=== PATIENT | female | born 1965 | race Caucasian/White ===

== ENCOUNTER → 2017-02-03 | Outpatient (CLI) | payer BC | LOC: MMGSC 13:37 | PROVIDERS: ATTEND Family Medicine | DX: E34.9 Endocrine disorder, unspecified (principal) | CPT/HCPCS: 36415; 83001; 83002 ==

== ENCOUNTER → 2017-06-15 | Outpatient (CLI) | payer BC ==
[2017-06-15 14:11] LABS: HCT 42.1 % (34.0-46.0); HGB 13.8 gm/dL (11.4-16.0); MCH 29.9 pg (25.0-35.0); MCHC 32.7 g/dL (31.0-37.0); MCV 91.5 fL (80.0-100.0); Mean Platelet Volume 6.6; Platelet Count 428 k/uL (150-450); RDW 12.3 % (11.5-15.5); WBC 9.2 k/uL (3.8-10.6)
[2017-06-15 14:45] LABS: ALT 28 U/L (9-52); AST 21 U/L (14-36); Albumin 4.2 g/dL (3.5-5.0); Alkaline Phosphatase 65 U/L (38-126); Anion Gap 11 mmol/L; Blood Urea Nitrogen 14 mg/dL (7-17); Calcium 9.8 mg/dL (8.4-10.2); Carbon Dioxide 26 mmol/L (22-30); Chloride 108 mmol/L (98-107); Cholesterol 167 mg/dL (<200); Glucose 98 mg/dL (74-99); HDL Cholesterol 50 mg/dL (40-60); LDL Cholesterol,Calculated 86 mg/dL (0-99); Potassium 4.3 mmol/L (3.5-5.1); Sodium 145 mmol/L (137-145); Total Bilirubin 0.6 mg/dL (0.2-1.3); Triglycerides 156 mg/dL (<150)
[2017-06-15 19:24] LABS: Iron Saturation 25.41 (12.00-45.00)
[2017-06-15 19:33] LABS: Vitamin D 25 Hydroxy 20.1 ng/mL (30.0-100.0)
[2017-06-15 21:27] LABS: Hemoglobin A1C 5.1 % (4.0-6.0)
== END | disposition home or self-care (01) ==
LOC: LABWHC1 13:44
PROVIDERS: ATTEND Surgery
DX: E66.01 Morbid (severe) obesity due to excess calories (principal); E44.0 Moderate protein-calorie malnutrition; E55.9 Vitamin D deficiency, unspecified
CPT/HCPCS: 36415; 80053; 80061; 82306; 82607; 83036; 83540; 83550; 84443; 85027; 93005

== ENCOUNTER → 2017-06-15 | Outpatient (CLI) | payer BC ==
[2017-06-15 13:48] VITALS: BP 150/85; PULSE 91; TEMP 98.5
--- NOTE | 2017-06-15 15:06 | P.HPBAR ---
Bariatric H&P - History & Physicial H&P Date: 06/15/17 History & Physicial: Visit/CC: initial visit Patient initial contact: Initial weight: Initial weight in pounds: Height: 5 ft 2.5 in Initial BMI: Last weight: Current weight: 97.114 kg Current weight in pounds: Current BMI: [place] body weight (based on NIH guidelines): 51.029 kg Excess body weight loss: The patient is a 51 year-old F who presents for Bariatric Assessment. Patient presents for new patient consultation. She is requesting sleeve gastrectomy. Her BMI is 39. She's had lifetime problems obesity. Patient states she has complaints of any foot and hip pain. She is also had some GERD symptoms. Past Medical History Past Medical History: GERD/Reflux, Hypertension History of Any Multi-Drug Resistant Organisms: None Reported Past Surgical History: Cholecystectomy, Hysterectomy, Tonsillectomy Additional Past Surgical History / Comment(s): bilateral wrist surgeries Past Anesthesia/Blood Transfusion Reactions: No Reported Reaction Past Psychological History: Anxiety Smoking Status: Never smoker Past Alcohol Use History: None Reported Past Drug Use History: None Reported Surgical - Exam Vital Signs Temp Pulse BP 98.5 F 91 150/85 06/15/17 13:32 06/15/17 13:32 06/15/17 13:32 - General well developed, no distress - Eyes PERRL - ENT normal pinna - Neck no masses - Respiratory normal expansion - Cardiovascular Rhythm: regular - Abdomen Abdomen: soft, non tender Bariatric Assessment & Plan Plan: Morbid obesity with comorbidities. Patient has history of significant knee osteoarthritis. She's had previous injections in her knee. She takes Motrin when necessary. The patient will undergo EGD. We will attempt authorize her for sleeve gastrectomy. Bariatric Checklist Checklist: Plan: Checklist: EGD: 1. Hiatal hernia: 2. H. Pylori: HgbA1c: Vitamin D: Smoking: Never smoker Primary care physician referral: dr valle Psychiatry clearance: Cardiology clearance: Sleep study: Diet journal: VTE risk score: VTE risk level: Rehab needs at discharge:
== END | disposition home or self-care (01) ==
LOC: BARWHC3 12:46
PROVIDERS: ATTEND Surgery
DX: E66.01 Morbid (severe) obesity due to excess calories (principal); M17.0 Bilateral primary osteoarthritis of knee; F41.9 Anxiety disorder, unspecified; K21.9 Gastro-esophageal reflux disease without esophagitis; I10 Essential (primary) hypertension; Z90.49 Acquired absence of other specified parts of digestive tract; Z90.710 Acquired absence of both cervix and uterus; Z98.890 Other specified postprocedural states; Z79.1 Long term (current) use of non-steroidal anti-inflammatories (NSAID); Z68.39 Body mass index [BMI] 39.0-39.9, adult
CPT/HCPCS: 99201

== ENCOUNTER 2017-06-22 08:04 | Day surgery (SDC) | payer BC ==
[2017-06-18 09:26] VITALS: BMI 37.9
[~2017-06-22 08:04] MED LIST: LACTATED RINGERS 1,000 ML IV SCH; LIDOCAINE 1% 20 ML VIAL (10MG/ML) FOR IV START INTRADERMA PRN
[2017-06-22 08:25] VITALS: TEMP 98.4
[2017-06-22] MEDS ORDERED: PROPOFOL 10 MG/ML 20 ML VIAL IV ONE (10:10)
--- NOTE | 2017-06-22 10:11 | P.GSHP ---
History of Present Illness H&P Date: 06/22/17 Chief Complaint: Morbid obesity, GERD This is a 52-year-old female referred from Dr. Lucia Romero. Patient resents today for EGD. She is currently undergoing workup for sleeve yesterday. She's had some mild GERD symptoms. Past Medical History Past Medical History: GERD/Reflux, Hypertension History of Any Multi-Drug Resistant Organisms: None Reported Past Surgical History: Cholecystectomy, Hysterectomy, Tonsillectomy Additional Past Surgical History / Comment(s): bilateral wrist surgeries (FIRST JOINT THUMBS) Past Anesthesia/Blood Transfusion Reactions: No Reported Reaction Smoking Status: Never smoker - Past Family History Father Family Medical History: Prostate Disorder Medications and Allergies Home Medications Medication Instructions Recorded Confirmed Type ALPRAZolam [Xanax] 0.5 mg PO DIRECTED PRN 06/15/17 06/18/17 History Butalb/Acetaminophen/Caffeine 1 cap PO DAILY PRN 06/15/17 06/22/17 History [Fioricet 50-300-40 mg Capsule] Sertraline [Zoloft] 75 tab PO DAILY 06/15/17 06/18/17 History Allergies Allergy/AdvReac Type Severity Reaction Status Date / Time No Known Allergies Allergy Verified 06/22/17 08:20 Surgical - Exam Vital Signs Temp Pulse Resp BP Pulse Ox 98.4 F 84 16 133/84 98 06/22/17 08:24 06/22/17 08:24 06/22/17 08:24 06/22/17 08:24 06/22/17 08:24 - General well developed, no distress - Eyes PERRL - ENT normal pinna - Neck no masses - Respiratory normal expansion - Cardiovascular Rhythm: regular - Abdomen Abdomen: soft, non tender Assessment and Plan Assessment: GERD. Morbid obesity with BMI 38 We'll perform EGD.
--- NOTE | 2017-06-22 10:23 | P.OP ---
Date of Procedure: 06/22/17 Preoperative Diagnosis: Morbid obesity GERD Postoperative Diagnosis: Morbid obesity Mild antral gastritis Mild esophagitis No evidence of hiatal hernia Procedure(s) Performed: EGD Anesthesia: MAC Surgeon: Chung Maguire Pathology: other (Antrum, esophagus) Condition: stable Disposition: PACU Description of Procedure: Patient's placed on the endoscopy table in the lateral position. She received IV sedation. The gastroscope some placed oropharynx and passed in the esophagus and stomach. Scope was then placed through the pylorus. The first and second portion of the duodenum appeared normal. Scope was then brought back the antrum and this was mildly inflamed. A biopsies performed. Scope was retroflexed and remainder of the stomach appeared normal. The hiatus was examined. There is known to any hiatal hernia. The scope was then brought back the distal esophagus was mildly inflamed. A biopsies performed. The proximal esophagus appeared normal. Scope was withdrawn for patient.
[2017-06-22 10:33] VITALS: RESP 18
[2017-06-22 10:57] VITALS: BP 137/78; PULSE 62
== END 2017-06-22 11:08 | disposition home or self-care (01) ==
LOC: ORWHC2ENDO 08:04
PROVIDERS: ATTEND Surgery
DX: K21.0 Gastro-esophageal reflux disease with esophagitis (principal); K29.50 Unspecified chronic gastritis without bleeding; I10 Essential (primary) hypertension; F41.9 Anxiety disorder, unspecified; F32.9 Major depressive disorder, single episode, unspecified; E66.01 Morbid (severe) obesity due to excess calories; Z68.38 Body mass index [BMI] 38.0-38.9, adult; Z79.899 Other long term (current) drug therapy; Z90.49 Acquired absence of other specified parts of digestive tract
CPT/HCPCS: 43239; J2704; 88305

== ENCOUNTER → 2017-07-13 | Outpatient (CLI) | payer BC ==
[2017-07-13 13:54] VITALS: BP 137/75; PULSE 76; RESP 15; TEMP 98.1; BMI 37.7
--- NOTE | 2017-07-14 11:35 | P.HPBAR ---
Bariatric H&P - History & Physicial H&P Date: 07/13/17 History & Physicial: Visit/CC: sleeve consultation EGD results (Jun) Patient initial contact: Initial weight: 97.114 kg Initial weight in pounds: 214.10 Height: 5 ft 2.5 in Initial BMI: 38.5 Last weight: Current weight: 95.073 kg Current weight in pounds: 209.60 Current BMI: 37.7 [place] body weight (based on NIH guidelines): 51.029 kg Excess body weight loss: 4.4% The patient is a 52 year-old F who presents for Bariatric Assessment. The patient returns. She is preoperative for sleeve gastrectomy. She has scheduled her psych evaluation. The patient morbid obese with a BMI of 38. Patient's undergone previous EGD. Past Medical History Past Medical History: GERD/Reflux, Hypertension History of Any Multi-Drug Resistant Organisms: None Reported Past Surgical History: Cholecystectomy, Hysterectomy, Tonsillectomy Additional Past Surgical History / Comment(s): bilateral wrist surgeries (FIRST JOINT THUMBS) Past Anesthesia/Blood Transfusion Reactions: No Reported Reaction Past Psychological History: Anxiety Smoking Status: Never smoker Past Alcohol Use History: Rare Past Drug Use History: None Reported - Past Family History Father Family Medical History: Prostate Disorder Surgical - Exam Vital Signs Temp Pulse Resp BP 98.1 F 76 15 137/75 07/13/17 13:47 07/13/17 13:47 07/13/17 13:47 07/13/17 13:47 - General well developed, no distress - Eyes PERRL - ENT normal pinna - Neck no masses - Respiratory normal expansion - Cardiovascular Rhythm: regular - Abdomen Abdomen: soft, non tender Bariatric Assessment & Plan Plan: Morbid obesity with BMI of 38. Patient will be authorized for sleeve gastrectomy. She will follow-up in the clinic in 8 weeks. Bariatric Checklist Checklist: Plan: Checklist: EGD: 1. Hiatal hernia: 2. H. Pylori: HgbA1c: Vitamin D: Smoking: Never smoker Primary care physician referral: dr valle Psychiatry clearance: Cardiology clearance: Sleep study: Diet journal: VTE risk score: VTE risk level: Rehab needs at discharge:
== END | disposition home or self-care (01) ==
LOC: BARWHC3 13:33
PROVIDERS: ATTEND Surgery
DX: Z48.815 Encounter for surgical aftercare following surgery on the digestive system (principal); E66.01 Morbid (severe) obesity due to excess calories; B96.81 Helicobacter pylori [H. pylori] as the cause of diseases classified elsewhere; Z68.38 Body mass index [BMI] 38.0-38.9, adult; Z90.710 Acquired absence of both cervix and uterus; Z90.49 Acquired absence of other specified parts of digestive tract
CPT/HCPCS: 83013; 99211

== ENCOUNTER → 2017-09-01 | Outpatient (CLI) | payer BC ==
--- NOTE | 2017-09-01 15:17 | CONS ---
CONSULTATION This is a consultation note for sleep apnea. A 52-year-old obese female patient coming in complaining of loud snoring, and chronic tiredness and sleepiness. She is obese. She has gained significant amount of weight over the years. Her current BMI 39.5, and she is interested in bariatric surgery. For that reason, she was referred for further evaluation. She goes to bed somewhere between 10-11:00 p.m. and wakes up 6 to 7:00 am in the morning. However effectively she takes only 4 hours of solid sleep. She snores loud. She has excessive daytime sleepiness. No current Wood[place] Score is at 11. Does not fall asleep while driving. No restlessness in lower extremities. Occasional grinding of the teeth. She has chronic anxiety maintained on a combination of Zoloft and Xanax. PAST MEDICAL HISTORY: Obesity and chronic anxiety. PAST SURGICAL HISTORY: Includes foot surgery involving the 5th metatarsal joint, abdominal hysterectomy, inguinal hernia repair, cholecystectomy and rotator cuff release. ALLERGIES: Not known. MEDICATION LIST: Includes Zoloft 75 mg p.o. daily, Fioricet p.r.n., Xanax p.r.n., multivitamin, calcium and vitamin D. SOCIAL HISTORY: A nonsmoker. Drinks alcohol socially. No history of substance abuse. FAMILY HISTORY: Father has obstructive sleep apnea. REVIEW OF SYSTEMS: 12-point review of system was done. The patient has no sleepwalking or sleep talking. She is a nose breather. No dry mouth in the morning. She has anxiety but no panic attacks. No palpitation. No heartburn. No sexual dysfunction. No history of depression. She has no problems with memory or concentration. She worries about her sleep and she takes naps during the day as at times as the patient becomes quite somnolent and sleepy. No sleep paralysis. No hallucinations or cataplexy. Her current vitals BP is 140/77, pulse 88, respirations 16, temp 98 saturation 98% on room air. Neck size 14 inches, BMI 39.5, weight is 221. Height is 5 feet 2 inches. GENERAL APPEARANCE: Calm, comfortable. Head is atraumatic, normocephalic. NECK: Short, supple. Crowded posterior pharynx. There is no goiter or neck masses. LUNGS: Diminished. HEART: Sounds. Regular rhythm. Normal S1, S2. No S3, S4. No murmurs. ABDOMEN: Soft, nontender. No organomegaly. EXTREMITIES: No edema. No cyanosis or clubbing. NEUROLOGIC: The patient is AO x3. No focal neurological deficits. PSYCHIATRIC: Negative for depression. She has positive anxiety. IMPRESSION: 1. Obstructive sleep apnea clinically suspected, currently under investigation. 2. Chronic hypersomnia, Wood[place] score of 11. 3. Obesity with a BMI of 39.5. 4. Chronic anxiety maintained on a combination of Zoloft and Xanax. PLAN: This patient is feeling somnolent and sleepy. She is currently retired. 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 Currently she is off work and she has not worked for the past 8 months at least. She is feeling quite tired and sleepy during the day and she at times takes naps. She is obese and she is gaining weight. She is interested in bariatric surgery. She was referred to me for evaluation of obstructive sleep apnea. We will proceed with a screening polysomnogram to assess the presence of and severity of obstructive sleep apnea. Based on that we will make further recommendations and treatment options if needed. MMODL / IJN: [id number] /
== END ==
LOC: SLEEP 13:59
PROVIDERS: ATTEND Internal Medicine Critical Care Medicine
DX: G47.10 Hypersomnia, unspecified (principal); E66.9 Obesity, unspecified; F41.9 Anxiety disorder, unspecified; Z68.39 Body mass index [BMI] 39.0-39.9, adult; Z79.899 Other long term (current) drug therapy
CPT/HCPCS: 99211

== ENCOUNTER → 2018-09-20 | Outpatient (CLI) | payer BC ==
[2018-09-20 15:47] LABS: Basophils # (A) 0.1 k/uL (0-0.2); Basophils % (A) 1 %; Eosinophils # (A) 0.2 k/uL (0-0.7); Eosinophils % (A) 2 %; HCT 42.7 % (34.0-46.0); HGB 13.9 gm/dL (11.4-16.0); Lymphocytes # (A) 2.7 k/uL (1.0-4.8); Lymphocytes % (A) 29 %; MCH 29.9 pg (25.0-35.0); MCHC 32.6 g/dL (31.0-37.0); MCV 91.7 fL (80.0-100.0); Mean Platelet Volume 7.1; Monocytes # (A) 0.4 k/uL (0-1.0); Monocytes % (A) 5 %; Neutrophils # (A) 5.6 k/uL (1.3-7.7); Neutrophils % (A) 61 %; Platelet Count 366 k/uL (150-450); RBC 4.65 m/uL (3.80-5.40); RDW 13.5 % (11.5-15.5); WBC 9.1 k/uL (3.8-10.6)
[2018-09-20 16:06] LABS: ALT 38 U/L (9-52); AST 30 U/L (14-36); Albumin 4.5 g/dL (3.5-5.0); Alkaline Phosphatase 70 U/L (38-126); Anion Gap 8 mmol/L; Blood Urea Nitrogen 17 mg/dL (7-17); Calcium 9.8 mg/dL (8.4-10.2); Carbon Dioxide 26 mmol/L (22-30); Chloride 108 mmol/L (98-107); Glucose 92 mg/dL (74-99); Potassium 4.9 mmol/L (3.5-5.1); Sodium 142 mmol/L (137-145); Total Protein 7.1 g/dL (6.3-8.2)
== END | disposition home or self-care (01) ==
LOC: LABPAT 15:03
PROVIDERS: ATTEND Surgery
DX: Z01.818 Encounter for other preprocedural examination (principal); Z01.812 Encounter for preprocedural laboratory examination
CPT/HCPCS: 36415; 80053; 85025; 93005

== ENCOUNTER → 2018-09-20 | Outpatient (CLI) | payer BC ==
[2018-09-20 15:00] VITALS: BP 147/72; PULSE 72; RESP 16; TEMP 99; BMI 38.3
--- NOTE | 2018-09-20 16:41 | P.HPBAR ---
Bariatric H&P - History & Physicial H&P Date: 09/20/18 History & Physicial: Visit/CC: Pre-surg Patient initial contact: Initial weight: 97.114 kg Initial weight in pounds: 214.10 Height: 5 ft 2.5 in Initial BMI: 38.5 Last weight: Current weight: 96.615 kg Current weight in pounds: 213.00 Current BMI: 38.3 [place] body weight (based on NIH guidelines): 51.029 kg Excess body weight loss: 1.0% The patient is a 53 year-old F who presents for Bariatric Assessment. Patient presents for presurgical consultation. She is currently being scheduled for then a month for sleeve gastrectomy. Patient is morbidly obese with BMI 38. Past Medical History Past Medical History: GERD/Reflux, Hypertension History of Any Multi-Drug Resistant Organisms: None Reported Past Surgical History: Cholecystectomy, Hysterectomy, Tonsillectomy Additional Past Surgical History / Comment(s): bilateral wrist surgeries (FIRST JOINT THUMBS) Past Anesthesia/Blood Transfusion Reactions: No Reported Reaction Past Psychological History: Anxiety Smoking Status: Never smoker Past Alcohol Use History: Rare Past Drug Use History: None Reported - Past Family History Father Family Medical History: Prostate Disorder Surgical - Exam Vital Signs Temp Pulse Resp BP 99 F 72 16 147/72 09/20/18 14:57 09/20/18 14:57 09/20/18 14:57 09/20/18 14:57 - General well developed, well nourished, no distress - Abdomen Abdomen: soft, non tender Bariatric Assessment & Plan Plan: RBC. Patient will be undergoing sleeve gastrectomy at the end of the month. Patient is a good understanding of the procedure. Generous of the risks and benefits of surgery including conversion O procedure and injury to the stomach liver or spleen. She understands risk of possible gastric staple line disruption. Bariatric Checklist Checklist: Plan: Checklist: EGD: 1. Hiatal hernia: 2. H. Pylori: HgbA1c: Vitamin D: Smoking: Never smoker Primary care physician referral: dr valle Psychiatry clearance: Cardiology clearance: Sleep study: Diet journal: VTE risk score: VTE risk level: Rehab needs at discharge:
== END | disposition home or self-care (01) ==
LOC: BARWHC3 14:30
PROVIDERS: ATTEND Surgery
DX: Z01.818 Encounter for other preprocedural examination (principal); E66.01 Morbid (severe) obesity due to excess calories; Z68.38 Body mass index [BMI] 38.0-38.9, adult; Z90.49 Acquired absence of other specified parts of digestive tract
CPT/HCPCS: 99211

== ENCOUNTER → 2018-09-28 | Outpatient (CLI) | payer BC | END | disposition home or self-care (01) | LOC: LABWHC1 09:24 | PROVIDERS: ATTEND Anesthesiology | DX: Z01.812 Encounter for preprocedural laboratory examination (principal); E66.01 Morbid (severe) obesity due to excess calories | CPT/HCPCS: 86850; 86900; 86901 ==

== ENCOUNTER 2018-10-05 07:45 | Inpatient (IN) | payer BC ==
[~2018-10-05 07:45] MED LIST changes: +DEXAMETHASONE SOD PHOSPHATE 10 MG/ML 1 ML VIAL IV ONE; -LACTATED RINGERS 1,000 ML IV SCH; +MIDAZOLAM 2 MG/2 ML VIAL IV PRN; +ONDANSETRON 4 MG/2 ML VIAL IVP ONE; +SCOPOLAMINE 1.5MG/72HR PATCH TRANSDERM ONE; +ceFAZolin IN SWFI 2 GM/20 ML SYRINGE IVP ONE
--- NOTE | 2018-10-05 09:54 | P.GSHP ---
History of Present Illness H&P Date: 10/05/18 Chief Complaint: Morbid obesity This is a 53-year-old female who presents today for laparoscopic sleeve gastrectomy. Patient's had lifetime problems obesity. Her BMI is 37. Patient understands the risks of surgery including conversion to the open procedure and injury to the stomach liver spleen. She is also aware of the risk of gastric staple line disruption, bleeding or scarring. Past Medical History Past Medical History: GERD/Reflux, Hypertension History of Any Multi-Drug Resistant Organisms: None Reported Past Surgical History: Cholecystectomy, Hysterectomy, Tonsillectomy Additional Past Surgical History / Comment(s): bilateral wrist surgeries (FIRST JOINT THUMBS), COLONOSCOPY/EGD, RT ROTATOR CUFF SX, HEMORRHOID SX, Past Anesthesia/Blood Transfusion Reactions: No Reported Reaction Smoking Status: Never smoker - Past Family History Father Family Medical History: Cancer Mother Family Medical History: Cancer Medications and Allergies Home Medications Medication Instructions Recorded Confirmed Type ALPRAZolam [Xanax] 0.5 mg PO DIRECTED PRN 06/15/17 09/21/18 History Butalb/Acetaminophen/Caffeine 1 cap PO DAILY PRN 06/15/17 09/21/18 History [Fioricet 50-300-40 mg Capsule] Cholecalciferol (Vitamin D3) 10,000 unit PO DAILY 07/13/17 09/21/18 History [Vitamin D3] Cyclobenzaprine [Flexeril] 10 mg PO DIRECTED 08/23/18 09/21/18 History Metoprolol Monique/Hydrochlorothiaz 1 tab PO DAILY 08/23/18 09/21/18 History [Metoprolol ER-Hctz 25-12.5 mg] Phentermine HCl 37.5 mg pe PO DAILY 08/23/18 09/21/18 History Sertraline [Zoloft] 50 mg PO DAILY 09/21/18 09/21/18 History Allergies Allergy/AdvReac Type Severity Reaction Status Date / Time No Known Allergies Allergy Verified 09/28/18 12:39 Surgical - Exam BMI 37 - General well developed, well nourished, no distress - Eyes PERRL - ENT normal pinna - Neck no masses - Respiratory normal expansion - Cardiovascular Rhythm: regular - Abdomen Abdomen: soft, non tender Assessment and Plan Assessment: Morbid obesity We'll perform laparoscopic sleeve gastrectomy.
[2018-10-05] MEDS: LACTATED RINGERS 1,000 ML IV SCH (10:30)
[2018-10-05] MEDS ORDERED: ROCURONIUM BROMIDE 10 MG/ML 10 ML VIAL IV ONE (10:38)
[2018-10-05] MEDS ORDERED: MIDAZOLAM 2 MG/2 ML VIAL ONE (10:38)
[2018-10-05] MEDS ORDERED: ePHEDrine SULFATE/0.9% NACL/PF 50 MG/5 ML SYRINGE IV ONE (10:38)
[2018-10-05] MEDS ORDERED: PHENYLEPHRINE-0.9% NACL SYG 1 MG/10 ML SYRINGE ONE (10:38)
[2018-10-05] MEDS ORDERED: ONDANSETRON 4 MG/2 ML VIAL ONE (10:38)
[2018-10-05] MEDS ORDERED: SUCCINYLCHOLINE CHLORIDE 100 MG/5 ML SYR IV ONE (10:38)
[2018-10-05] MEDS ORDERED: GLYCOPYRROLATE 0.2 MG/ML 2 ML VIAL ONE (10:38)
[2018-10-05] MEDS ORDERED: fentaNYL (PF) 50 MCG/ML 2 ML AMP ONE (10:38)
[2018-10-05] MEDS ORDERED: LIDOCAINE 1% INJ 10MG/ML (20 ML MDV) ONE (10:38)
[2018-10-05] MEDS ORDERED: PROPOFOL 10 MG/ML 20 ML VIAL IV ONE (10:38)
[2018-10-05] MEDS ORDERED: NEOSTIGMINE 1 MG/ML 10 ML VIAL ONE (10:38)
[2018-10-05] MEDS ORDERED: BUPIVACAIN-EPI 0.5%-1:200,000 30 ML VIAL SQ ONE (11:08)
[2018-10-05] MEDS ORDERED: LACTATED RINGERS 1,000 ML IV ONE (11:50)
[2018-10-05] MEDS ORDERED: HYDROcodone/APAP 15 ML SOLUTION PO PRN (11:55)
[2018-10-05] MEDS ORDERED: diphenhydrAMINE 50 MG/ML 1 ML VIAL IVP PRN (11:55)
[2018-10-05] MEDS ORDERED: NALOXONE 0.4 MG/ML 1 ML VIAL IV PRN (11:55)
[2018-10-05] MEDS ORDERED: ONDANSETRON 4 MG/2 ML VIAL IVP PRN (11:55)
--- NOTE | 2018-10-05 11:55 | P.OP ---
Date of Procedure: 10/05/18 Preoperative Diagnosis: Morbid obesity, BMI 37 Postoperative Diagnosis: Morbid obesity, BMI 37 Procedure(s) Performed: Laparoscopic sleeve gastrectomy Repair hiatal hernia Anesthesia: KRISTA Surgeon: Chung Maguire Estimated Blood Loss (ml): 10 Pathology: other (Stomach remnant) Condition: stable Disposition: PACU Description of Procedure: The patient was placed on the operating room table in the supine position. She received general anesthesia and then was placed in dorsal lithotomy position. Her abdomen was prepped and draped in sterile fashion. The skin incision sites were anesthetized 1% local Xylocaine. And then the skin was incised with an 11 blade in the left lateral position. Using a blade less trocar under direct visualization the peritoneal cavity was entered. The abdomen was insufflated and then a 5 mm laparoscope was placed into the peritoneal cavity. A 5 mm trocar was placed in the right epigastric, and right lateral position. A 15 mm trocar was placed in the supra-umbilical position and another 5 mm trocar was placed in the left lateral position. The left lateral lobe of the liver was retracted. The stomach was visualized. The greater curvature of the stomach was then dissected using the Harmonic scissors. The dissection occurred approximately 5 cm from the pylorus to the level of the left nory. There was a hiatal hernia visualized. Using the Harmonic scissors the nory was dissected. A 360 dissection the nory was performed. The hiatal hernias repaired using 2-0 Ethibond suture. The sutures are placed in the retro-epigastric position. . At this point a 40-Liberian bougie dilator was placed the oropharynx and passed into the esophagus and into the stomach by the SEMICONDUCTOR LAB TECHNICIAN. The sleeve gastrectomy was performed by using the powered echelon stapler with a seam guard buttress material. Sequential firings of the stapler were performed. The gastric remnant was then brought out through the 15 mm trocar site. The dilator was withdrawn. And a orogastric tube was replaced into the stomach. The stomach was insufflated with 200 mL of methylene blue normal saline. There was no evidence of extravasation. The abdomen was irrigated there is no bleeding seen. The David-Eduardo device was used to close the 15 mm trocar with 0 Vicryl. Skin was closed with interrupted 3-0 Monocryl sutures once the trochars withdrawn. Dermabond dressing was applied. Patient was sent to recovery in stable condition.
[2018-10-05] MEDS: HYDROmorphone 0.5 MG/0.5 ML SYRINGE IVP PRN ×3 (12:03→12:43)
[2018-10-05] MEDS ORDERED: METOCLOPRAMIDE 5 MG/ML 2 ML VIAL IVP ONE (12:23)
[2018-10-05] MEDS ORDERED: diphenhydrAMINE 50 MG/ML 1 ML VIAL IVP ONE ×2 (12:27→12:32)
[2018-10-05] MEDS ORDERED: HYDROmorphone 1 MG/ML 1 ML SYRINGE IVP ONE (12:48)
[2018-10-05] MEDS ORDERED: MEPERIDINE 50 MG/ML SYRINGE IVP ONE (13:09)
[2018-10-05] MEDS: KETOROLAC 30 MG/ML 1 ML VIAL IVP SCH ×3 (14:02→23:03)
[2018-10-05] MEDS: ALBUTEROL NEBULIZED 2.5 MG/3 ML INHALATION SCH ×3 (14:02→19:16)
[2018-10-05] MEDS: HYDROmorphone 1 MG/ML 1 ML SYRINGE IVP PRN ×3 (14:17→20:26)
[2018-10-05] MEDS: 0.9% NACL WITH KCL 20 MEQ/L 1,000 ML IV SCH ×2 (17:04→22:59)
[2018-10-05] MEDS: SIMETHICONE 40 MG/0.6 ML DROPS 2,000 MG/30 ML BOTTLE PO PRN ×2 (17:34→23:07)
[2018-10-05] MEDS: HYOSCYAMINE ORAL DROPS 1.875 MG/15 ML BOTTLE PO PRN ×2 (17:35→23:07)
--- NOTE | 2018-10-05 17:43 | P.CONS ---
History of Present Illness - Reason for Consult Consult date: 10/05/18 Medical management of hypertension and acid reflux Requesting physician: Chung Maguire - Chief Complaint Medical management of hypertension and acid reflux - History of Present Illness The patient is a morbidly obese 53-year-old female with a past medical history of essential hypertension and GERD is currently admitted under Dr. Maguire service after having a laparoscopic sleeve gastrectomy and hiatal hernia repair. Patient is doing well postop does have some abdominal discomfort and nausea but she denies any chest pain or shortness of breath. The patient otherwise has no complaints today, reports that she's been up and ambulatory and has been able to urinate. Review of Systems Pertinent positives per HPI all other review of systems otherwise negative Past Medical History Past Medical History: GERD/Reflux, Hypertension History of Any Multi-Drug Resistant Organisms: None Reported Past Surgical History: Cholecystectomy, Hysterectomy, Tonsillectomy Additional Past Surgical History / Comment(s): bilateral wrist surgeries (FIRST JOINT THUMBS), COLONOSCOPY/EGD, RT ROTATOR CUFF SX, HEMORRHOID SX, Past Anesthesia/Blood Transfusion Reactions: No Reported Reaction Past Psychological History: Anxiety Smoking Status: Never smoker Past Alcohol Use History: Rare Past Drug Use History: None Reported - Past Family History Father Family Medical History: Cancer Mother Family Medical History: Cancer Medications and Allergies Home Medications Medication Instructions Recorded Confirmed Type ALPRAZolam [Xanax] 0.5 mg PO DIRECTED PRN 06/15/17 10/05/18 History Butalb/Acetaminophen/Caffeine 1 cap PO DAILY PRN 06/15/17 10/05/18 History [Fioricet 50-300-40 mg Capsule] Cholecalciferol (Vitamin D3) 10,000 unit PO DAILY 07/13/17 10/05/18 History [Vitamin D3] Cyclobenzaprine [Flexeril] 10 mg PO DIRECTED 08/23/18 10/05/18 History Metoprolol Monique/Hydrochlorothiaz 1 tab PO DAILY 08/23/18 10/05/18 History [Metoprolol ER-Hctz 25-12.5 mg] Sertraline [Zoloft] 50 mg PO DAILY 09/21/18 10/05/18 History Allergies Allergy/AdvReac Type Severity Reaction Status Date / Time No Known Allergies Allergy Verified 10/05/18 13:59 Physical Exam Vitals: Vital Signs Temp Pulse Pulse Resp BP BP Pulse Ox 10/05/18 16:16 70 10/05/18 16:00 72 98 10/05/18 15:22 76 16 10/05/18 14:30 98 F 92 12 114/75 92 L 10/05/18 14:21 76 119/70 10/05/18 13:00 70 16 117/70 96 10/05/18 12:45 64 16 120/67 97 10/05/18 12:30 68 14 123/69 100 10/05/18 12:15 97.5 F L 70 12 124/74 98 10/05/18 12:02 97.3 F L 84 14 105/55 97 10/05/18 10:37 98.2 F 76 16 115/67 96 Intake and Output 10/05/18 10/05/18 10/05/18 06:59 14:59 22:59 Intake Total 1000 Output Total 5 Balance 995 Intake: IV 1000 Output: Estimated Blood Loss 5 Other: Weight 93.1 kg Constitutional: No acute distress, conversant, pleasant Eyes: Anicteric sclerae, moist conjunctiva, no lid-lag, PERRLA ENMT: NC/AT,Oropharynx clear, no erythema, exudates Neck:Supple, FROM, no masses, or JVD, No carotid bruits; No thyromegaly Lungs: Clear to auscultation, Clear to percussion, Normal respiratory effort, no accessory muscle use Cardiovascular: Heart regular in rate and rhythm, No murmurs, gallops, or rubs no peripheral edema Abdominal: Soft Nontender, nom distended, no guarding, no rebound or rigidity, Normoactive bowel sounds No hepatomegaly, No splenomegaly, No palpable mass No abdominal wall hernia noted Skin: Normal temperature, tone, texture, turgor, No induration No subcutaneous nodules, No rash, lesions, No ulcers Extremities:No digital cyanosis No clubbing, Pedal pulses intact and symmetrical Radial pulses intact and symmetrical Normal gait and station, No calf tenderness Psychiatric: Alert and oriented to person, place and time, Appropriate affect Intact judgement Neuro: Muscles Strength 5/5 in all 4 extremities, Sensation to light touch grossly present throughout, Cranial nerves II-XII grossly intact. No focal sensory deficits Assessment and Plan (1) Essential hypertension Current Visit: Yes Status: Acute Code(s): I10 - ESSENTIAL (PRIMARY) HYPERTENSION SNOMED Code(s): 74919403 (2) GERD (gastroesophageal reflux disease) Current Visit: Yes Status: Acute Code(s): K21.9 - GASTRO-ESOPHAGEAL REFLUX DISEASE WITHOUT ESOPHAGITIS SNOMED Code(s): 465172077 (3) Morbid obesity Current Visit: Yes Status: Acute Code(s): E66.01 - MORBID (SEVERE) OBESITY DUE TO EXCESS CALORIES SNOMED Code(s): 877037341 (4) S/P laparoscopic sleeve gastrectomy Current Visit: Yes Status: Acute Code(s): Z98.84 - BARIATRIC SURGERY STATUS SNOMED Code(s): 217672142 Plan: The patient is on admitted under general surgery's service after having laparoscopic sleeve gastrectomy. Currently doing well. Continue ice chips, continue postop orders. I will resume her home hypertensive hypertensive regimen and continue to follow her clinical course she is currently hemodynamically stable. I appreciate opportunity being involved in this patient's care. Time with Patient: Less than 30
[2018-10-05] MEDS: ENOXAPARIN 40 MG/0.4 ML SYRINGE SQ SCH (22:59)
[2018-10-06] MEDS: 0.9% NACL WITH KCL 20 MEQ/L 1,000 ML IV SCH (03:31)
[2018-10-06] MEDS: HYDROmorphone 1 MG/ML 1 ML SYRINGE IVP PRN ×2 (03:34→08:58)
[2018-10-06] MEDS: KETOROLAC 30 MG/ML 1 ML VIAL IVP SCH ×2 (06:00→12:11)
[2018-10-06] MEDS: SIMETHICONE 40 MG/0.6 ML DROPS 2,000 MG/30 ML BOTTLE PO PRN ×2 (06:01→12:11)
[2018-10-06] MEDS: HYOSCYAMINE ORAL DROPS 1.875 MG/15 ML BOTTLE PO PRN ×2 (06:02→12:10)
[2018-10-06] MEDS: LACTATED RINGERS 1,000 ML IV SCH (06:22)
[2018-10-06 07:30] VITALS: BP 95/58; RESP 18; TEMP 98.4
[2018-10-06] MEDS: ENOXAPARIN 40 MG/0.4 ML SYRINGE SQ SCH (07:50)
[2018-10-06] MEDS ORDERED: 1: MVI, ADULT NO.4 WITH VIT K 10 ML, THIAMINE 100 MG, FOLIC ACID 1 MG, POTASSIUM CHLORID IV SCH ×6 (08:00)
[2018-10-06 08:12] LABS: Anion Gap 7 mmol/L; Blood Urea Nitrogen 13 mg/dL (7-17); Calcium 8.4 mg/dL (8.4-10.2); Carbon Dioxide 23 mmol/L (22-30); Chloride 110 mmol/L (98-107); Magnesium 2.1 mg/dL (1.6-2.3); Phosphorus 2.7 mg/dL (2.5-4.5); Potassium 4.2 mmol/L (3.5-5.1); Sodium 140 mmol/L (137-145)
[2018-10-06 08:34] LABS: Basophils % (A) 0 %; Eosinophils % (A) 0 %; HGB 11.7 gm/dL (11.4-16.0); Lymphocytes # (A) 2.1 k/uL (1.0-4.8); Lymphocytes % (A) 22 %; MCH 30.8 pg (25.0-35.0); MCHC 32.6 g/dL (31.0-37.0); MCV 94.3 fL (80.0-100.0); Mean Platelet Volume 7.4; Monocytes # (A) 0.6 k/uL (0-1.0); Monocytes % (A) 6 %; Neutrophils # (A) 6.6 k/uL (1.3-7.7); Neutrophils % (A) 70 %; Platelet Count 283 k/uL (150-450); RBC 3.82 m/uL (3.80-5.40); WBC 9.5 k/uL (3.8-10.6)
[2018-10-06] MEDS ORDERED: CHOLECALCIFEROL 1,000 UNIT TAB PO SCH (09:00)
[2018-10-06] MEDS ORDERED: METOPROLOL SUCCINATE (ER) 25 MG TAB.ER.24H PO SCH (09:00)
[2018-10-06] MEDS ORDERED: HYDROCHLOROTHIAZIDE 12.5 MG CAP PO SCH (09:00)
[2018-10-06] MEDS ORDERED: SERTRALINE 50 MG TAB PO SCH (09:00)
[2018-10-06] MEDS ORDERED: PANTOPRAZOLE 40 MG/10 ML VIAL IV SCH (09:00)
--- NOTE | 2018-10-06 09:13 | FL ---
EXAMINATION TYPE: FL UGI DATE OF EXAM: 10/06/2018 COMPARISON: NONE HISTORY: Status post gastric sleeve TECHNIQUE: A single/double contrast UGI study is performed. FINDINGS: 1.08 minutes fluoroscopy time, 6 images obtained. Patient received 50 cc Isovue-370 orally. Some delayed contrast progression across the gastric sleeve site. There is a caliber reduction along the caliber sleeve. There is no extravasation. Minimal pneu moperitoneum noted incidentally. Surgical clips present in the right upper quadrant. IMPRESSION: Postop changes with some delayed transit across the surgical site.
[2018-10-06] MEDS: ALBUTEROL NEBULIZED 2.5 MG/3 ML INHALATION SCH ×2 (09:34→13:07)
--- NOTE | 2018-10-06 09:55 | P.PN ---
Subjective Progress Note Date: 10/06/18 Patient doing well today seen and examined with no issues, continues to tolerate clear liquids. No acute events overnight, has been up and ambulatory and is passing gas and is able to urinate without difficulty Objective - Vital Signs Vital signs: Vital Signs Temp 98.4 F 10/06/18 07:10 Pulse 79 10/06/18 09:43 Resp 18 10/06/18 07:10 BP 95/58 10/06/18 07:10 Pulse Ox 96 10/06/18 09:41 Intake & Output 10/05/18 10/06/18 10/06/18 18:59 06:59 18:59 Intake Total 1000 Output Total 5 Balance 995 Weight 93.1 kg Intake: IV 1000 Output: Estimated Blood Loss 5 Other: Voiding Method Toilet # Voids 2 - Exam Constitutional: No acute distress, conversant, pleasant Eyes: Anicteric sclerae, moist conjunctiva, no lid-lag, PERRLA ENMT: NC/AT,Oropharynx clear, no erythema, exudates Neck:Supple, FROM, no masses, or JVD, No carotid bruits; No thyromegaly Lungs: Clear to auscultation, Clear to percussion, Normal respiratory effort, no accessory muscle use Cardiovascular: Heart regular in rate and rhythm, No murmurs, gallops, or rubs no peripheral edema Abdominal: Soft Nontender, nom distended, no guarding, no rebound or rigidity, Normoactive bowel sounds No hepatomegaly, No splenomegaly, No palpable mass No abdominal wall hernia noted Skin: Normal temperature, tone, texture, turgor, No induration No subcutaneous nodules, No rash, lesions, No ulcers Extremities:No digital cyanosis No clubbing, Pedal pulses intact and symmetrical Radial pulses intact and symmetrical Normal gait and station, No calf tenderness Psychiatric: Alert and oriented to person, place and time, Appropriate affect Intact judgement Neuro: Muscles Strength 5/5 in all 4 extremities, Sensation to light touch grossly present throughout, Cranial nerves II-XII grossly intact. No focal sensory deficits - Labs CBC & Chem 7: 10/06/18 07:25 10/06/18 07:25 Labs: Abnormal Lab Results - Last 24 Hours (Table) 10/06/18 Range/Units 07:25 Chloride 110 H (98-107) mmol/L Assessment and Plan (1) Essential hypertension Narrative/Plan: * Blood pressure stable controlled on home regimen Current Visit: Yes Status: Acute Code(s): I10 - ESSENTIAL (PRIMARY) HYPERTENSION SNOMED Code(s): 65861049 (2) GERD (gastroesophageal reflux disease) Current Visit: Yes Status: Acute Code(s): K21.9 - GASTRO-ESOPHAGEAL REFLUX DISEASE WITHOUT ESOPHAGITIS SNOMED Code(s): 210448403 (3) Morbid obesity Current Visit: Yes Status: Acute Code(s): E66.01 - MORBID (SEVERE) OBESITY DUE TO EXCESS CALORIES SNOMED Code(s): 478771725 (4) S/P laparoscopic sleeve gastrectomy Narrative/Plan: * doing well post-sleeve gastrectomy * Patient to follow-up with her surgeon Dr. Maguire Current Visit: Yes Status: Acute Code(s): Z98.84 - BARIATRIC SURGERY STATUS SNOMED Code(s): 932455598 Plan: * Patient stable for discharge, will sign off Time with Patient: Less than 30
[2018-10-06 10:25] VITALS: PULSE 72
--- NOTE | 2018-10-06 11:26 | P.DS ---
Providers Date of admission: 10/05/18 09:37 Expected date of discharge: 10/06/18 Attending physician: Chung Maguire Consults: 10/05/18 11:55 Consult Physician Routine Consulting Provider: Adrienne Carbajal Consult Reason/Comments: Medical management Do you want consulting provider notified?: Yes Primary care physician: [facility] Hospital Course: 53-year-old female who underwent laparoscopic sleeve gastrectomy and repair of hiatal hernia. Patient is doing well postoperatively without any immediate complications. Patient is tolerating liquid diet without difficulty. Pain is controlled on oral medications. Vital signs have been stable. She is stable for discharge home today. Please see EMR for further hospital course details. Discharge diagnosis 1. Morbid obesity, status post laparoscopic sleeve gastrectomy and repair of hiatal hernia Nurse practitioner note has been reviewed by physician. Signing provider agrees with the documented findings, assessment, and plan of care. Plan - Discharge Summary Discharge Rx Participant: Yes New Discharge Prescriptions: New HYDROcodone/APAP [Colton Elixir 7.5-325Mg/15Ml] 15 ml PO Q6HR PRN 3 Days #180 ml PRN Reason: Pain Sucralfate [Carafate] 1 gm PO BID #500 ml Bisacodyl [Dulcolax] 5 mg PO DAILY PRN #10 tablet. PRN Reason: Constipation Ondansetron Odt [Zofran Odt] 4 mg PO Q8HR PRN #9 tab PRN Reason: Nausea Omeprazole 20 mg PO DAILY #30 cap No Action ALPRAZolam [Xanax] 0.5 mg PO DIRECTED PRN PRN Reason: Anxiety Butalb/Acetaminophen/Caffeine [Fioricet 50-300-40 mg Capsule] 1 cap PO DAILY PRN PRN Reason: Migraine Headache Cholecalciferol (Vitamin D3) [Vitamin D3] 10,000 unit PO DAILY Metoprolol Monique/Hydrochlorothiaz [Metoprolol ER-Hctz 25-12.5 mg] 1 tab PO DAILY Cyclobenzaprine [Flexeril] 10 mg PO DIRECTED Sertraline [Zoloft] 50 mg PO DAILY Discharge Medication List ALPRAZolam [Xanax] 0.5 mg PO DIRECTED PRN 06/15/17 [History] Butalb/Acetaminophen/Caffeine [Fioricet 50-300-40 mg Capsule] 1 cap PO DAILY PRN 06/15/17 [History] Cholecalciferol (Vitamin D3) [Vitamin D3] 10,000 unit PO DAILY 07/13/17 [History] Cyclobenzaprine [Flexeril] 10 mg PO DIRECTED 08/23/18 [History] Metoprolol Monique/Hydrochlorothiaz [Metoprolol ER-Hctz 25-12.5 mg] 1 tab PO DAILY 08/23/18 [History] Sertraline [Zoloft] 50 mg PO DAILY 09/21/18 [History] Bisacodyl [Dulcolax] 5 mg PO DAILY PRN #10 tablet. 10/06/18 [Rx] HYDROcodone/APAP [Colton Elixir 7.5-325Mg/15Ml] 15 ml PO Q6HR PRN 3 Days #180 ml 10/06/18 [Rx] Omeprazole 20 mg PO DAILY #30 cap 10/06/18 [Rx] Ondansetron Odt [Zofran Odt] 4 mg PO Q8HR PRN #9 tab 10/06/18 [Rx] Sucralfate [Carafate] 1 gm PO BID #500 ml 10/06/18 [Rx] Follow up Appointment(s)/Referral(s): [facility] [NON-STAFF] - 1 Week Activity/Diet/Wound Care/Special Instructions: No driving while taking [place] No lifting over 10 pounds You may shower. No soaking or tub baths Very light activity until you are reevaluated at your follow up appointment with your surgeon Liquid diet
[2018-10-06 11:31] VITALS: BMI 36.9
== END 2018-10-06 13:30 | disposition home or self-care (01) | DRG 621 ==
LOC: EDSTATUS 07:45 → 2ORMAIN 09:37 → 4SSUR 13:24
PROVIDERS: ADMIT Surgery; ATTEND Surgery
DX: E66.01 Morbid (severe) obesity due to excess calories (principal); K21.9 Gastro-esophageal reflux disease without esophagitis; I10 Essential (primary) hypertension; K44.9 Diaphragmatic hernia without obstruction or gangrene; F41.9 Anxiety disorder, unspecified; Z68.37 Body mass index [BMI] 37.0-37.9, adult; Z90.49 Acquired absence of other specified parts of digestive tract; Z90.89 Acquired absence of other organs; Z90.710 Acquired absence of both cervix and uterus; Z80.9 Family history of malignant neoplasm, unspecified; Z79.899 Other long term (current) drug therapy
CPT/HCPCS: 74240; 80051; 82310; 82565; 83735; 84100; 84520; 85025; 86850; 86900; 86901; 88307; 94640

== ENCOUNTER → 2018-10-08 | Outpatient (CLI) | payer BC ==
[2018-10-08 12:12] VITALS: BP 135/83; PULSE 63; TEMP 98.3; BMI 37.0
== END | disposition home or self-care (01) ==
LOC: BARWHC3 11:00
PROVIDERS: ATTEND Surgery
DX: E66.9 Obesity, unspecified (principal); I10 Essential (primary) hypertension; M79.10 Myalgia, unspecified site; Z68.41 Body mass index [BMI] 40.0-44.9, adult
CPT/HCPCS: 99211

== ENCOUNTER → 2018-10-18 | Outpatient (CLI) | payer BC ==
[2018-10-18 14:26] VITALS: BP 135/87; PULSE 80; RESP 16; TEMP 98.1; BMI 35.4
--- NOTE | 2018-10-18 15:15 | P.HPBAR ---
Bariatric H&P - History & Physicial H&P Date: 10/18/18 History & Physicial: Visit/CC: post sleeve Patient initial contact: Initial weight: 97.114 kg Initial weight in pounds: 214.10 Height: 5 ft 2.5 in Initial BMI: 38.5 Last weight: Current weight: 89.358 kg Current weight in pounds: 197.00 Current BMI: 35.4 [place] body weight (based on NIH guidelines): 51.029 kg Excess body weight loss: 16.8% The patient is a 53 year-old F who presents for Bariatric Assessment. Patient presents today for sleeve gastrectomy follow-up. She had her gastric sleeve performed about 2 weeks ago. She's had no complaints. She's had excellent weight loss. Past Medical History Past Medical History: GERD/Reflux, Hypertension History of Any Multi-Drug Resistant Organisms: None Reported Past Surgical History: Bariatric Surgery, Cholecystectomy, Hysterectomy, Tonsillectomy Additional Past Surgical History / Comment(s): bilateral wrist surgeries (FIRST JOINT THUMBS)sleeve gastrectomy 10-05-18 Past Anesthesia/Blood Transfusion Reactions: No Reported Reaction Past Psychological History: Anxiety Smoking Status: Never smoker Past Alcohol Use History: Rare Past Drug Use History: None Reported - Past Family History Father Family Medical History: Cancer Mother Family Medical History: Cancer Surgical - Exam Vital Signs Temp Pulse Resp BP 98.1 F 80 16 135/87 10/18/18 14:23 10/18/18 14:23 10/18/18 14:23 10/18/18 14:23 - General well developed, well nourished, no distress - Eyes PERRL - Abdomen Abdomen: soft, non tender Bariatric Assessment & Plan Plan: Status post sleeve gastrectomy. Patient will follow-up in 2 weeks. Bariatric Checklist Checklist: Plan: Checklist: EGD: 1. Hiatal hernia: 2. H. Pylori: HgbA1c: Vitamin D: Smoking: Never smoker Primary care physician referral: dr valle Psychiatry clearance: Cardiology clearance: Sleep study: Diet journal: VTE risk score: VTE risk level: Rehab needs at discharge:
== END | disposition home or self-care (01) ==
LOC: BARWHC3 13:46
PROVIDERS: ATTEND Surgery
DX: Z48.815 Encounter for surgical aftercare following surgery on the digestive system (principal); Z90.49 Acquired absence of other specified parts of digestive tract; Z90.710 Acquired absence of both cervix and uterus; Z98.84 Bariatric surgery status
CPT/HCPCS: 97803; 99211

== ENCOUNTER → 2018-11-01 | Outpatient (CLI) | payer BC ==
[2018-11-01 13:24] VITALS: BP 131/82; PULSE 74; RESP 16; TEMP 99.5; BMI 34.5
--- NOTE | 2018-11-01 15:55 | P.HPBAR ---
Bariatric H&P - History & Physicial H&P Date: 11/01/18 History & Physicial: Visit/CC: sleeve folow-up Patient initial contact: Initial weight: 97.114 kg Initial weight in pounds: 214.10 Height: 5 ft 2.5 in Initial BMI: 38.5 Last weight: Current weight: 87.09 kg Current weight in pounds: 192.00 Current BMI: 34.5 [place] body weight (based on NIH guidelines): 51.029 kg Excess body weight loss: 21.7% The patient is a 53 year-old F who presents for Bariatric Assessment. Patient presents today for sleeve gastrectomy follow-up. She is doing extremely well. She's lost 5 pounds her last visit. She's had some mild complaints of GERD. Past Medical History Past Medical History: GERD/Reflux, Hypertension History of Any Multi-Drug Resistant Organisms: None Reported Past Surgical History: Bariatric Surgery, Cholecystectomy, Hysterectomy, Tonsillectomy Additional Past Surgical History / Comment(s): bilateral wrist surgeries ([employer] JO[employer] THUMBS)sleeve gastrectomy 10-05-18 Past Anesthesia/Blood Transfusion Reactions: No Reported Reaction Past Psychological History: Anxiety Smoking Status: Never smoker Past Alcohol Use History: Rare Past Drug Use History: None Reported - Past Family History Father Family Medical History: Cancer Mother Family Medical History: Cancer Surgical - Exam Vital Signs Temp Pulse Resp BP 99.5 F 74 16 131/82 11/01/18 13:20 11/01/18 13:20 11/01/18 13:20 11/01/18 13:20 - General well developed, well nourished, no distress - Eyes PERRL - Abdomen Abdomen: soft, non tender Bariatric Assessment & Plan Plan: Status post sleeve gastrectomy. The patient has had excellent weight loss. Her GERD is minimal and will be observed. She'll follow-up in 4 weeks. Bariatric Checklist Checklist: Plan: Checklist: EGD: 1. Hiatal hernia: 2. H. Pylori: HgbA1c: Vitamin D: Smoking: Never smoker Primary care physician referral: dr valle Psychiatry clearance: Cardiology clearance: Sleep study: Diet journal: VTE risk score: VTE risk level: Rehab needs at discharge:
== END | disposition home or self-care (01) ==
LOC: BARWHC3 12:55
PROVIDERS: ATTEND Surgery
DX: Z48.815 Encounter for surgical aftercare following surgery on the digestive system (principal); E66.01 Morbid (severe) obesity due to excess calories; K21.9 Gastro-esophageal reflux disease without esophagitis; Z68.34 Body mass index [BMI] 34.0-34.9, adult; Z98.84 Bariatric surgery status
CPT/HCPCS: 99211

== ENCOUNTER → 2018-12-06 | Outpatient (CLI) | payer BC ==
[2018-12-06 13:37] VITALS: BP 156/90; PULSE 87; RESP 16; TEMP 98.8; BMI 32.2
== END | disposition home or self-care (01) ==
LOC: BARWHC3 13:05
PROVIDERS: ATTEND Surgery
DX: E66.01 Morbid (severe) obesity due to excess calories (principal); Z68.32 Body mass index [BMI] 32.0-32.9, adult
CPT/HCPCS: 97803; 99211

== ENCOUNTER → 2019-01-10 | Outpatient (CLI) | payer BC ==
[2019-01-10 15:38] VITALS: BP 144/89; PULSE 87; TEMP 98.6; BMI 31.1
--- NOTE | 2019-01-10 16:04 | P.HPBAR ---
Bariatric H&P - History & Physicial H&P Date: 01/10/19 History & Physicial: Visit/CC: 3 mos sleeve f/u Patient initial contact: Initial weight: 97.114 kg Initial weight in pounds: 214.10 Height: 5 ft 2.5 in Initial BMI: 38.5 Last weight: Current weight: 78.471 kg Current weight in pounds: 173.00 Current BMI: 31.1 [place] body weight (based on NIH guidelines): 51.029 kg Excess body weight loss: 40.4% The patient is a 53 year-old F who presents for Bariatric Assessment. Patient presents today for sleeve yesterday follow-up. She is an excellent weight loss. She's had some minimal GERD. She has been developing rashes at her panniculus. Past Medical History Past Medical History: GERD/Reflux, Hypertension History of Any Multi-Drug Resistant Organisms: None Reported Past Surgical History: Bariatric Surgery, Cholecystectomy, Hysterectomy, Tonsillectomy Additional Past Surgical History / Comment(s): bilateral wrist surgeries ([employer] JOINT THUMBS)sleeve gastrectomy 10-05-18 Past Anesthesia/Blood Transfusion Reactions: No Reported Reaction Past Psychological History: Anxiety Smoking Status: Never smoker Past Alcohol Use History: Rare Past Drug Use History: None Reported - Past Family History Father Family Medical History: Cancer Mother Family Medical History: Cancer Surgical - Exam Vital Signs Temp Pulse BP 98.6 F 87 144/89 01/10/19 15:13 01/10/19 15:13 01/10/19 15:13 - General well developed, well nourished, no distress - Eyes PERRL - Abdomen Abdomen: soft, non tender Bariatric Assessment & Plan Plan: Status post sleeve gastrectomy. Patient's excellent weight loss. Her GERD is minimal on be observed. She'll follow-up in 4 weeks. Bariatric Checklist Checklist: Plan: Checklist: EGD: 1. Hiatal hernia: 2. H. Pylori: HgbA1c: Vitamin D: Smoking: Never smoker Primary care physician referral: dr valle Psychiatry clearance: Cardiology clearance: Sleep study: Diet journal: VTE risk score: VTE risk level: Rehab needs at discharge:
[2019-01-10 17:17] LABS: HCT 46.1 % (34.0-46.0); HGB 15.3 gm/dL (11.4-16.0); MCH 31.1 pg (25.0-35.0); MCHC 33.2 g/dL (31.0-37.0); MCV 93.7 fL (80.0-100.0); Mean Platelet Volume 6.8; Platelet Count 337 k/uL (150-450); RBC 4.92 m/uL (3.80-5.40); RDW 12.9 % (11.5-15.5)
[2019-01-10 23:40] LABS: Vitamin D 25 Hydroxy 34.4 ng/mL (30.0-100.0)
[2019-01-10 23:46] LABS: Folate, Serum 14.5 ng/mL
[2019-01-10 23:48] LABS: African American GFR (CKD) 98.2 (60.0-200.0); Albumin 4.8 g/dL (3.80-4.90); Albumin/Globulin Ratio 2.29 (1.60-3.17); Anion Gap 11.2 mmol/L (4.00-12.00); Calcium 9.9 mg/dL (8.7-10.3); Carbon Dioxide 26.8 mmol/L (21.6-31.8); Globulin 2.1 g/dL (1.6-3.3); Potassium 4.5 mmol/L (3.5-5.5); Total Bilirubin 1.2 mg/dL (0.3-1.2); Total Protein 6.9 g/dL (6.2-8.2)
[2019-01-10 23:49] LABS: Magnesium 2.2 mg/dL (1.5-2.4)
== END | disposition home or self-care (01) ==
LOC: BARWHC3 14:51
PROVIDERS: ATTEND Surgery
DX: Z48.815 Encounter for surgical aftercare following surgery on the digestive system (principal); K21.9 Gastro-esophageal reflux disease without esophagitis; E55.9 Vitamin D deficiency, unspecified; Z98.84 Bariatric surgery status
CPT/HCPCS: 80053; 82306; 82607; 82746; 83735; 85027; 99211

== ENCOUNTER → 2019-04-04 | Outpatient (CLI) | payer BC ==
[2019-04-04 16:26] VITALS: BP 128/82; PULSE 79; RESP 16; TEMP 97.7; BMI 29.7
--- NOTE | 2019-04-04 18:00 | P.HPBAR ---
Bariatric H&P - History & Physicial H&P Date: 04/04/19 History & Physicial: Visit/CC: sleeve 10/05/18 Patient initial contact: Initial weight: 97.114 kg Initial weight in pounds: 214.10 Height: 5 ft 2.5 in Initial BMI: 38.5 Last weight: Current weight: 74.843 kg Current weight in pounds: 165.00 Current BMI: 29.7 [place] body weight (based on NIH guidelines): 51.029 kg Excess body weight loss: 48.3% The patient is a 53 year-old F who presents for Bariatric Assessment. Patient presents today for sleeve gastrectomy follow-up. She is distention well. She's had some mild GERD. Past Medical History Past Medical History: GERD/Reflux, Hypertension History of Any Multi-Drug Resistant Organisms: None Reported Past Surgical History: Bariatric Surgery, Cholecystectomy, Hysterectomy, Tonsillectomy Additional Past Surgical History / Comment(s): bilateral wrist surgeries ([employer] JOINT THUMBS)sleeve gastrectomy 10-05-18 Past Anesthesia/Blood Transfusion Reactions: No Reported Reaction Past Psychological History: Anxiety Smoking Status: Never smoker Past Alcohol Use History: Rare Past Drug Use History: None Reported - Past Family History Father Family Medical History: Cancer Mother Family Medical History: Cancer Surgical - Exam Vital Signs Temp Pulse Resp BP 97.7 F 79 16 128/82 04/04/19 15:25 04/04/19 15:25 04/04/19 15:25 04/04/19 15:25 - General well nourished, no distress - Abdomen Abdomen: soft, non tender Bariatric Assessment & Plan Plan: Status post sleeve gastrectomy. Patient did quite well. Her GERD is minimal and will be observed. She'll follow-up in 4 weeks. Bariatric Checklist Checklist: Plan: Checklist: EGD: 1. Hiatal hernia: 2. H. Pylori: HgbA1c: Vitamin D: Smoking: Never smoker Primary care physician referral: dr valle Psychiatry clearance: Cardiology clearance: Sleep study: Diet journal: VTE risk score: VTE risk level: Rehab needs at discharge:
== END | disposition home or self-care (01) ==
LOC: BARWHC3 15:03
PROVIDERS: ATTEND Surgery
DX: Z48.815 Encounter for surgical aftercare following surgery on the digestive system (principal); K21.9 Gastro-esophageal reflux disease without esophagitis; E66.01 Morbid (severe) obesity due to excess calories; Z98.84 Bariatric surgery status
CPT/HCPCS: 97803; 99211

== ENCOUNTER → 2019-06-20 | Outpatient (CLI) | payer BC ==
[2019-06-20 14:17] VITALS: BP 137/71; PULSE 68; RESP 16; TEMP 98.2; BMI 24.7
--- NOTE | 2019-06-20 14:21 | P.HPBAR ---
Bariatric H&P - History & Physicial H&P Date: 06/20/19 History & Physicial: Visit/CC: F/U Patient initial contact: Initial weight: 97.114 kg Initial weight in pounds: 214.10 Height: 5 ft 2.5 in Initial BMI: 38.5 Last weight: Current weight: 62.341 kg Current weight in pounds: 137.44 Current BMI: 24.7 [place] body weight (based on NIH guidelines): 51.029 kg Excess body weight loss: 75.4% The patient is a 53 year-old F who presents for Bariatric Assessment. Patient presents today for sleeve gastrectomy fall. She's doing quite well. She has lost 6 pounds since her last visit. She has minimal GERD. Past Medical History Past Medical History: GERD/Reflux, Hypertension History of Any Multi-Drug Resistant Organisms: None Reported Past Surgical History: Bariatric Surgery, Cholecystectomy, Hysterectomy, Tonsillectomy Additional Past Surgical History / Comment(s): bilateral wrist surgeries ([employer] JO[employer] THUMBS)sleeve gastrectomy 10-05-18 Past Anesthesia/Blood Transfusion Reactions: No Reported Reaction Smoking Status: Never smoker - Past Family History Father Family Medical History: Cancer Mother Family Medical History: Cancer Surgical - Exam Vital Signs Temp Pulse Resp BP 98.2 F 68 16 137/71 06/20/19 13:51 06/20/19 13:51 06/20/19 13:51 06/20/19 13:51 - General well developed, well nourished, no distress - Eyes PERRL - ENT normal pinna - Neck no masses - Respiratory normal expansion - Cardiovascular Rhythm: regular - Abdomen Abdomen: soft, non tender Bariatric Assessment & Plan Plan: Status post sleeve gastrectomy. Patient still quite well. Her GERD is minimal old be observed. Bariatric Checklist Checklist: Plan: Checklist: EGD: 1. Hiatal hernia: 2. H. Pylori: HgbA1c: Vitamin D: Smoking: Never smoker Primary care physician referral: dr valle Psychiatry clearance: Cardiology clearance: Sleep study: Diet journal: VTE risk score: VTE risk level: Rehab needs at discharge:
== END | disposition home or self-care (01) ==
LOC: BARWHC3 13:22
PROVIDERS: ATTEND Surgery
DX: Z48.815 Encounter for surgical aftercare following surgery on the digestive system (principal); K21.9 Gastro-esophageal reflux disease without esophagitis; Z98.84 Bariatric surgery status; Z90.49 Acquired absence of other specified parts of digestive tract; Z90.710 Acquired absence of both cervix and uterus
CPT/HCPCS: 99211

== ENCOUNTER → 2019-06-22 | Outpatient (CLI) | payer BC ==
[2019-06-22 10:40] LABS: HCT 45.1 % (34.0-46.0); HGB 14.4 gm/dL (11.4-16.0); MCH 30.2 pg (25.0-35.0); MCHC 31.9 g/dL (31.0-37.0); MCV 94.5 fL (80.0-100.0); Mean Platelet Volume 7.4; Platelet Count 358 k/uL (150-450); RBC 4.77 m/uL (3.80-5.40); RDW 12.5 % (11.5-15.5); WBC 6.8 k/uL (3.8-10.6)
[2019-06-22 16:25] LABS: African American GFR (CKD) 97.6 (60.0-200.0); Albumin 4.6 g/dL (3.80-4.90); Albumin/Globulin Ratio 2.3 (1.60-3.17); Anion Gap 8.7 mmol/L (4.00-12.00); Calcium 9.7 mg/dL (8.7-10.3); Carbon Dioxide 27.3 mmol/L (21.6-31.8); Non-African American GFR(CKD) 84.2 (60.0-200.0); Potassium 5.4 mmol/L (3.5-5.5); Total Bilirubin 0.8 mg/dL (0.2-1.2); Total Protein 6.6 g/dL (6.2-8.2)
== END | disposition home or self-care (01) ==
LOC: LABWHC1 09:42
PROVIDERS: ATTEND Surgery
DX: E66.01 Morbid (severe) obesity due to excess calories (principal)
CPT/HCPCS: 36415; 80053; 82306; 82607; 82746; 84425; 84443; 85027

== ENCOUNTER → 2019-10-03 | Outpatient (CLI) | payer BC ==
[2019-10-03 13:19] VITALS: BP 121/77; PULSE 75; RESP 16; TEMP 98.9; BMI 29.0
--- NOTE | 2019-10-03 13:55 | P.HPBAR ---
Bariatric H&P - History & Physicial H&P Date: 10/03/19 History & Physicial: Visit/CC: 1 year follow up Patient initial contact: Initial weight: 97.114 kg Initial weight in pounds: 214.10 Height: 5 ft 2.5 in Initial BMI: 38.5 Last weight: Current weight: 73.21 kg Current weight in pounds: 161.40 Current BMI: 29.0 [place] body weight (based on NIH guidelines): 51.029 kg Excess body weight loss: 51.8% The patient is a 54 year-old F who presents for Bariatric Assessment. Patient resents today for sleeve gastrectomy follow-up. She is given to pounds her last visit. She's had some minimal GERD. She denies any dysphagia. Her BMI is 29 Past Medical History Past Medical History: GERD/Reflux, Hypertension History of Any Multi-Drug Resistant Organisms: None Reported Past Surgical History: Bariatric Surgery, Cholecystectomy, Hysterectomy, Tonsillectomy Additional Past Surgical History / Comment(s): bilateral wrist surgeries ([employer] JO[employer] THUMBS)sleeve gastrectomy 10-05-18 Past Anesthesia/Blood Transfusion Reactions: No Reported Reaction Smoking Status: Never smoker - Past Family History Father Family Medical History: Cancer Mother Family Medical History: Cancer Surgical - Exam Vital Signs Temp Pulse Resp BP 98.9 F 75 16 121/77 10/03/19 13:15 10/03/19 13:15 10/03/19 13:15 10/03/19 13:15 - General well developed, well nourished, no distress - Eyes PERRL - ENT normal pinna - Respiratory normal expansion - Cardiovascular Rhythm: regular - Abdomen Abdomen: soft, non tender Bariatric Assessment & Plan Plan: Status post sleeve gastrectomy. Patient has had excellent weight loss. She lost proximal and 80 pounds since her surgery. Her GERD is minimal and will be observed. Bariatric Checklist Checklist: Plan: Checklist: EGD: 1. Hiatal hernia: 2. H. Pylori: HgbA1c: Vitamin D: Smoking: Never smoker Primary care physician referral: dr valle Psychiatry clearance: Cardiology clearance: Sleep study: Diet journal: VTE risk score: VTE risk level: Rehab needs at discharge:
== END | disposition home or self-care (01) ==
LOC: BARWHC3 12:52
PROVIDERS: ATTEND Surgery
DX: Z48.815 Encounter for surgical aftercare following surgery on the digestive system (principal); K21.9 Gastro-esophageal reflux disease without esophagitis; Z98.84 Bariatric surgery status
CPT/HCPCS: 97803; 99211

== ENCOUNTER → 2019-11-21 | Outpatient (CLI) | payer BC ==
[2019-11-21 09:28] LABS: HCT 42.8 % (34.0-46.0); HGB 14.1 gm/dL (11.4-16.0); MCH 31.7 pg (25.0-35.0); MCHC 32.9 g/dL (31.0-37.0); MCV 96.6 fL (80.0-100.0); Mean Platelet Volume 7.3; Platelet Count 305 k/uL (150-450); RBC 4.43 m/uL (3.80-5.40); WBC 6.6 k/uL (3.8-10.6)
[2019-11-21 16:14] LABS: African American GFR (CKD) 84.6 (60.0-200.0); Albumin 4.5 g/dL (3.80-4.90); Albumin/Globulin Ratio 2.05 (1.60-3.17); Anion Gap 4.7 mmol/L (4.00-12.00); BUN/Creat Ratio 17.78 Ratio (12.00-20.00); Calcium 10.1 mg/dL (8.7-10.3); Carbon Dioxide 27.3 mmol/L (21.6-31.8); Globulin 2.2 g/dL (1.6-3.3); Potassium 5.3 mmol/L (3.5-5.5); Total Bilirubin 1.1 mg/dL (0.2-1.2); Total Protein 6.7 g/dL (6.2-8.2)
[2019-11-21 16:24] LABS: Folate, Serum 21.2 ng/mL
== END | disposition home or self-care (01) ==
LOC: LABWHC1 08:33
PROVIDERS: ATTEND Surgery
DX: E55.9 Vitamin D deficiency, unspecified (principal); E44.0 Moderate protein-calorie malnutrition; E66.01 Morbid (severe) obesity due to excess calories
CPT/HCPCS: 36415; 80053; 82306; 82607; 82746; 84425; 84443; 85027

== ENCOUNTER → 2019-12-05 | Outpatient (CLI) | payer BC ==
[2019-12-05 13:06] VITALS: BP 124/80; PULSE 89; RESP 16; TEMP 98.7; BMI 28.0
--- NOTE | 2019-12-12 13:39 | P.HPBAR ---
Bariatric H&P - History & Physicial History & Physicial: Visit/CC: Sleeve f/u Patient initial contact: Initial weight: 97.114 kg Initial weight in pounds: 214.10 Height: 5 ft 2.5 in Initial BMI: 38.5 Last weight: Current weight: 70.76 kg Current weight in pounds: 156.00 Current BMI: 28.0 [place] body weight (based on NIH guidelines): 51.029 kg Excess body weight loss: 57.1% The patient is a 54 year-old F who presents for Bariatric Assessment. Past Medical History Past Medical History: GERD/Reflux, Hypertension History of Any Multi-Drug Resistant Organisms: None Reported Past Surgical History: Bariatric Surgery, Cholecystectomy, Hysterectomy, Tonsillectomy Additional Past Surgical History / Comment(s): bilateral wrist surgeries ([employer] JO[employer] THUMBS)sleeve gastrectomy 10-05-18 Past Anesthesia/Blood Transfusion Reactions: No Reported Reaction Smoking Status: Unknown if ever smoked - Past Family History Father Family Medical History: Cancer Mother Family Medical History: Cancer Surgical - Exam Vital Signs Temp Pulse Resp BP 98.7 F 89 16 124/80 12/05/19 13:03 12/05/19 13:03 12/05/19 13:03 12/05/19 13:03 Bariatric Checklist Checklist: Plan: Checklist: EGD: 1. Hiatal hernia: 2. H. Pylori: HgbA1c: Vitamin D: Smoking: Never smoker Primary care physician referral: dr valle Psychiatry clearance: Cardiology clearance: Sleep study: Diet journal: VTE risk score: VTE risk level: Rehab needs at discharge:
== END | disposition home or self-care (01) ==
LOC: BARWHC3 12:54
PROVIDERS: ATTEND Surgery
DX: Z48.815 Encounter for surgical aftercare following surgery on the digestive system (principal); D50.9 Iron deficiency anemia, unspecified; Z98.84 Bariatric surgery status
CPT/HCPCS: 99211

== ENCOUNTER → 2020-02-13 | Outpatient (CLI) | payer BC ==
[2020-02-13 13:18] VITALS: BP 145/79; PULSE 76; RESP 18; TEMP 98.5
--- NOTE | 2020-02-13 14:39 | P.HPBAR ---
Bariatric H&P - History & Physicial H&P Date: 02/13/20 History & Physicial: Visit/CC: follow up post sx Patient initial contact: Initial weight: 97.114 kg Initial weight in pounds: 214.10 Height: 5 ft 2.5 in Initial BMI: Last weight: Current weight: 70.76 kg Current weight in pounds: Current BMI: [place] body weight (based on NIH guidelines): Excess body weight loss: The patient is a 54 year-old F who presents for Bariatric Assessment. Patient presents today for sleeve gastrectomy follow-up. She is doing excellent. Her current weight is 156 pounds. She's had some mild GERD. Past Medical History Past Medical History: GERD/Reflux, Hypertension History of Any Multi-Drug Resistant Organisms: None Reported Past Surgical History: Bariatric Surgery, Cholecystectomy, Hysterectomy, T onsillectomy Additional Past Surgical History / Comment(s): bilateral wrist surgeries ([employer] JOINT THUMBS)sleeve gastrectomy 10-05-18 Past Anesthesia/Blood Transfusion Reactions: No Reported Reaction Past Psychological History: Anxiety Smoking Status: Never smoker Past Alcohol Use History: Rare Past Drug Use History: None Reported - Past Family History Father Family Medical History: Cancer Mother Family Medical History: Cancer Surgical - Exam Vital Signs Temp Pulse Resp BP 98.5 F 76 18 145/79 02/13/20 13:12 02/13/20 13:12 02/13/20 13:12 02/13/20 13:12 - General well developed, well nourished, no distress - Eyes PERRL - ENT normal pinna - Neck no masses - Respiratory normal expansion - Cardiovascular Rhythm: regular - Abdomen Abdomen: soft, non tender Bariatric Assessment & Plan Plan: Status post sleeve gastrectomy. Patient is doing well. Her GERD is minimal reserve. She'll follow-up in 3 months. Bariatric Checklist Checklist: Plan: Checklist: EGD: 1. Hiatal hernia: 2. H. Pylori: HgbA1c: Vitamin D: Smoking: Never smoker Primary care physician referral: dr valle Psychiatry clearance: Cardiology clearance: Sleep study: Diet journal: VTE risk score: VTE risk level: Rehab needs at discharge:
== END | disposition home or self-care (01) ==
LOC: BARWHC3 12:54
PROVIDERS: ATTEND Surgery
DX: Z48.815 Encounter for surgical aftercare following surgery on the digestive system (principal); K21.9 Gastro-esophageal reflux disease without esophagitis; Z98.84 Bariatric surgery status; Z90.49 Acquired absence of other specified parts of digestive tract; Z90.710 Acquired absence of both cervix and uterus
CPT/HCPCS: 99211

== ENCOUNTER → 2020-05-07 | Outpatient (CLI) | payer BC ==
[2020-05-07 13:18] VITALS: BP 138/92; PULSE 83; RESP 18; TEMP 98.4; BMI 28.2
--- NOTE | 2020-05-07 14:37 | P.HPBAR ---
Bariatric H&P - History & Physicial H&P Date: 05/07/20 History & Physicial: Visit/CC: follolw up Patient initial contact: Initial weight: 97.114 kg Initial weight in pounds: 214.10 Height: 5 ft 2.5 in Initial BMI: 38.5 Last weight: Current weight: 71.214 kg Current weight in pounds: 157.00 Current BMI: 28.2 [place] body weight (based on NIH guidelines): 51.029 kg Excess body weight loss: 56.2% The patient is a 54 year-old F who presents for Bariatric Assessment. Patient presents today for sleeve gastrectomy follow-up. She is doing quite well. Her weight has been stable. She's had some complaints of minimal GERD. Past Medical History Past Medical History: GERD/Reflux, Hypertension History of Any Multi-Drug Resistant Organisms: None Reported Past Surgical History: Bariatric Surgery, Cholecystectomy, Hysterectomy, Tonsillectomy Additional Past Surgical History / Comment(s): bilateral wrist surgeries ([employer] JOINT THUMBS)sleeve gastrectomy 10-05-18 Past Anesthesia/Blood Transfusion Reactions: No Reported Reaction Past Psychological History: Anxiety Smoking Status: Never smoker Past Alcohol Use History: Rare Past Drug Use History: None Reported - Past Family History Father Family Medical History: Cancer Mother Family Medical History: Cancer Surgical - Exam Vital Signs Temp Pulse Resp BP 98.4 F 83 18 138/92 05/07/20 13:13 05/07/20 13:13 05/07/20 13:13 05/07/20 13:13 - General well developed, well nourished, no distress - Eyes PERRL - ENT normal pinna - Neck no masses - Respiratory normal expansion - Cardiovascular Rhythm: regular - Abdomen Abdomen: soft, non tender Bariatric Assessment & Plan Plan: Status post sleeve gastrectomy.. Patient's has minimal GERD. She'll be observed. She'll follow-up in 3 months. Bariatric Checklist Checklist: Plan: Checklist: EGD: 1. Hiatal hernia: 2. H. Pylori: HgbA1c: Vitamin D: Smoking: Never smoker Primary care physician referral: dr valle Psychiatry clearance: Cardiology clearance: Sleep study: Diet journal: VTE risk score: VTE risk level: Rehab needs at discharge:
== END | disposition home or self-care (01) ==
LOC: BARWHC3 12:55
PROVIDERS: ATTEND Surgery
DX: Z48.815 Encounter for surgical aftercare following surgery on the digestive system (principal); K21.9 Gastro-esophageal reflux disease without esophagitis; Z98.84 Bariatric surgery status; Z90.710 Acquired absence of both cervix and uterus; Z90.49 Acquired absence of other specified parts of digestive tract
CPT/HCPCS: 99211

== ENCOUNTER → 2020-09-17 | Outpatient (CLI) | payer BC ==
[2020-09-17 13:25] VITALS: BP 131/77; PULSE 79; RESP 18; TEMP 98.3; BMI 27.1
[2020-09-17 14:25] LABS: HCT 41.4 % (34.0-46.0); MCH 31.6 pg (25.0-35.0); MCHC 33.9 g/dL (31.0-37.0); MCV 93.3 fL (80.0-100.0); Mean Platelet Volume 6.6; Platelet Count 337 k/uL (150-450); RBC 4.43 m/uL (3.80-5.40); RDW 12.3 % (11.5-15.5); WBC 8.3 k/uL (3.8-10.6)
--- NOTE | 2020-09-17 14:49 | P.HPBAR ---
Bariatric H&P - History & Physicial H&P Date: 09/17/20 History & Physicial: Visit/CC: follow up Patient initial contact: Initial weight: 97.114 kg Initial weight in pounds: 214.10 Height: 5 ft 2.5 in Initial BMI: 38.5 Last weight: Current weight: 68.492 kg Current weight in pounds: 151.00 Current BMI: 27.1 [place] body weight (based on NIH guidelines): 51.029 kg Excess body weight loss: 62.1% The patient is a 55 year-old F who presents for Bariatric Assessment. Patient presents today for sleeve gastric referral. She's doing quite well. She's had some mild GERD. Past Medical History Past Medical History: GERD/Reflux, Hypertension History of Any Multi-Drug Resistant Organisms: None Reported Past Surgical History: Bariatric Surgery, Cholecystectomy, Hysterectomy, Tonsillectomy Additional Past Surgical History / Comment(s): bilateral wrist surgeries ([employer] THUMBS)sleeve gastrectomy 10-05-18. bunion removal rt foot august 2020. Past Anesthesia/Blood Transfusion Reactions: No Reported Reaction Past Psychological History: Anxiety Smoking Status: Never smoker Past Alcohol Use History: Rare Past Drug Use History: None Reported - Past Family History Father Family Medical History: Cancer Mother Family Medical History: Cancer Surgical - Exam Vital Signs Temp Pulse Resp BP 98.3 F 79 18 131/77 09/17/20 13:17 09/17/20 13:17 09/17/20 13:17 09/17/20 13:17 - General well nourished - Abdomen Abdomen: soft, non tender Results - Labs 09/17/20 13:50 Bariatric Assessment & Plan Plan: Status post sleeve yesterday. Patient is minimal with observed. She'll follow- up in 4 weeks Bariatric Checklist Checklist: Plan: Checklist: EGD: 1. Hiatal hernia: 2. H. Pylori: HgbA1c: Vitamin D: Smoking: Never smoker Primary care physician referral: dr valle Psychiatry clearance: Cardiology clearance: Sleep study: Diet journal: VTE risk score: VTE risk level: Rehab needs at discharge:
[2020-09-17 20:47] LABS: % Iron Saturation 20.63 (12.00-45.00); Albumin 4.8 g/dL (3.80-4.90); Albumin/Globulin Ratio 1.92 (1.60-3.17); Anion Gap 9.4 mmol/L (4.00-12.00); BUN/Creat Ratio 18.89 Ratio (12.00-20.00); Calcium 9.8 mg/dL (8.7-10.3); Carbon Dioxide 26.6 mmol/L (21.6-31.8); Globulin 2.5 g/dL (1.6-3.3); Magnesium 2.3 mg/dL (1.5-2.4); Non-African American GFR(CKD) 72.5 (60.0-200.0); Potassium 5.2 mmol/L (3.5-5.5); Total Bilirubin 0.8 mg/dL (0.3-1.2); Total Protein 7.3 g/dL (6.2-8.2)
[2020-09-17 20:56] LABS: Ferritin 236.8 ng/mL (10.0-291.0)
[2020-09-18 12:23] LABS: Zinc, Serum 93 ug/dL (60-130)
[2020-09-19 06:47] LABS: Vit B1(Thiamine) 77 ug/L (38-122)
[2020-09-19 08:38] LABS: Vitamin A 54 ug/dL (38-106)
== END ==
LOC: BARWHC3 13:06
PROVIDERS: ATTEND Surgery
DX: Z09 Encounter for follow-up examination after completed treatment for conditions other than malignant neoplasm (principal); Z98.84 Bariatric surgery status; I10 Essential (primary) hypertension; K21.9 Gastro-esophageal reflux disease without esophagitis; F41.9 Anxiety disorder, unspecified
CPT/HCPCS: 80053; 82306; 82607; 82728; 82746; 83540; 83550; 83735; 84255; 84425; 84443; 84590; 84630; 85027; 99211

== ENCOUNTER 2023-07-08 08:53 | Day surgery (SDC) | payer BC ==
[2023-07-06 11:45] VITALS: BMI 30.1
[2023-07-08] MEDS: LIDOCAINE 1% (10MG/ML) FOR IV START INTRADERMA PRN (09:52)
[2023-07-08] MEDS: LACTATED RINGERS 1,000 ML IV SCH (09:52)
[2023-07-08 10:02] VITALS: TEMP 98.3
[2023-07-08] MEDS ORDERED: PROPOFOL 10 MG/ML 20 ML VIAL IV ONE (10:14)
[2023-07-08] MEDS ORDERED: LIDOCAINE 2% (PF) 20 MG/ML 5 ML VIAL ONE (10:14)
--- NOTE | 2023-07-08 10:27 | P.PCN ---
Date of Procedure: 07/08/23 Procedure(s) Performed: BRIEF HISTORY: Patient is a 58-year-old, pleasant, white female scheduled for an upper endoscopy as a part of evaluation of intermittent dysphagia to solids for the last 6 months duration. Lately his symptoms have been progressively getting worse.. She also has reflux symptoms and takes Prilosec as needed. PROCEDURE PERFORMED: Esophagogastroduodenoscopy with biopsy. With biopsy PREOPERATIVE DIAGNOSIS: GERD and intermittent dysphagia to solids. IV sedation per anesthesia. PROCEDURE: After informed consent was obtained, the patient was brought into the endoscopy unit. IV sedation was administered by Anesthesia under continuous monitoring. Initially the Olympus GIF-140 video endoscope was inserted into the mouth. Esophagus intubated without any difficulty. It was gradually advanced into the stomach and duodenum and carefully examined. The bulb and the second part of the duodenum appeared normal. The scope at this time was withdrawn to the stomach, adequately insufflated with air, and upon careful examination, mucosa of the antrum, had diffuse gastritis and biopsies were done in this area. There was evidence of gastric sleeve surgery and the mucosa of the body appeared normal. The scope was then withdrawn into the esophagus. small hiatal hernia noted. The GE junction was located at 39 cm from the incisors. The esophagus appeared normal. There were no erosions or ulcerations seen. No evidence of esophageal stricture. Unable biopsies were done from the mid and distal esophagus to evaluate for eosinophilic esophagitis and the patient tolerated the procedure well. IMPRESSION: 1. Small hiatal hernia but no evidence of esophagitis or esophageal stricture. 2. Mild antral gastritis 3. Evidence of gastric sleeve surgery. RECOMMENDATIONS: The findings of this examination were discussed with the patient as well as a her family. She was advised to follow with the biopsy results. Continue with omeprazole 20 mg daily and follow antireflux measures.
[2023-07-08 11:05] VITALS: BP 133/76; PULSE 76; RESP 20
== END 2023-07-08 11:15 | disposition home or self-care (01) ==
LOC: ORWHC2ENDO 08:53
PROVIDERS: ATTEND Internal Medicine Gastroenterology
DX: K29.50 Unspecified chronic gastritis without bleeding (principal); K21.9 Gastro-esophageal reflux disease without esophagitis; K44.9 Diaphragmatic hernia without obstruction or gangrene; F41.9 Anxiety disorder, unspecified; Z79.899 Other long term (current) drug therapy; Z98.84 Bariatric surgery status
CPT/HCPCS: 43239; J2704; J2001; 88305